=== PATIENT | male | born 1965 | race Hispanic/Latino ===

== ENCOUNTER 2024-05-03 06:16 | Emergency (ER) | payer OTHER ==
[~2024-05-03] VITALS: Ht 167.6 cm; Wt 84.8 kg
--- NOTE | 2024-05-03 06:47 | ERN ---
ED Note History of Present Illness Stated Complaint: C/O RECTAL BLEEDING WITH PAIN X 3 DAYS Chief Complaint: Rectal Bleed Time Seen by MD: 06:23 Dictation: This is a 58-year-old male who presented to the emergency room with complaints of rectal bleeding and pain for the past 3 days. He stated that he has had bleeding per rectum before but it was never painful as much and he did not pay much attention to to it. The pain was so intense that he has not slept all night and he is also unable to sit so he has been standing during my exam. Patient denies any systemic complaints such as fevers, nausea, vomiting, abdominal pain, diarrhea, constipation or urinary symptoms. Temperature 98.3 pulse 85 respirations 18 blood pressure 128/88 with a pulse oximetry of 98% on room air Home Meds Active Scripts Lidocaine HCl (Lidocaine HCl 5% Oint 36Gm) 5 % Oint, 1 APPL TP TID for pain, #1 APPL Prov:GIOVANA ALVARADO DO 05/03/24 Hydrocortisone (Hydrocortisone 2.5% Oint) 2.5 % Oint, 1 APPL TP BID for 10 Days, #60 GM 0 Refills apply to affected area(s) Prov:GIOVANA ALVARADO DO 05/03/24 Past Medical History Past Medical History: No Pertinent History Surgical History: None Family History: Negative RN Note Reviewed/Agreed w/PFSH: Yes Review of System Dictation Constitutional: Negative for fever,chills, and weight loss Eyes: Negative for injury, pain,redness, and discharge ENT: Negative for injury,pain or swelling Cardiovascular: Negative for chest pain, palpitations, and edema Respiratory: Negative for shortness of breath, cough, and wheezing, Abdomen/GI: Negative for abdominal pain, nausea, vomiting, diarrhea, and constipation positive for rectal bleeding Back: Negative for injury and pain : Negative for injury, bleeding and discharge MS/Extremity: Negative for injury and deformity Skin: Negative for rash, and discoloration Neuro: Negative for headache, weakness, numbness, tingling, and seizure Psych: Negative for suicide ideation, homicidal ideation, and hallucinations Initial Vital Sign VS Vital Signs Date Time Temp Pulse Resp B/P (MAP) Pulse Ox O2 Delivery O2 Flow Rate FiO2 05/03/24 06:17 98.2 Room Air 05/03/24 06:38 85 18 128/88 99 0 21 Physical Exam Dictation General: awake, alert, NAD Head/Face: Normocephalic, atraumatic Eyes: PERRL, EOMI, vision at baseline ENT: oral cavity clear, TMs clear, no signs of infection Neck: Trachea midline, supple, no nuchal rigidity Cardiovascular: RRR, normal S1/S2, No MRGs, no JVD Respiratory: CTAB, no respiratory distress, No rales or wheezes Abdomen: Soft, non-tender, non-distended, normal bowel sounds, no guarding or rebound. Skin: Warm, dry, normal turgor, no rash MS/Extremity: Pulses equal, no cyanosis, neurovascular intact, FROM Neuro: COAx4, GCS 15, strength 5/5, CN 2-12 intact, normal cerebellar exam, normal gait, Psych: Normal behavior, mood, and affect normal Extremities-trace edema without any palpable cords, Homans sign is negative Results (Laboratory/Radiology) Laboratory/Radiology Laboratory Tests Test 05/03/24 06:30 White Blood Count 5.0 K/uL (4.8-10.8) Red Blood Count 3.65 MIL/uL (4.50-6.20) L Hemoglobin 10.9 g/dL (14.0-18.0) L Hematocrit 34.2 % (42-54) L Mean Corpuscular Volume 93.7 fL (79-99) Mean Corpuscular Hemoglobin 29.9 pg (27.0-33.0) Mean Corpuscular Hemoglobin Concent 31.9 g/dL (32.0-36.0) L Red Cell Distribution Width 18.5 % (11.0-15.5) H Platelet Count 37 K/uL (130-400) L Mean Platelet Volume fL (7.5-10.5) Immature Granulocyte % (Auto) 0.4 % (0-1) Neutrophils (%) (Auto) 80.5 % (40.0-77.0) H Lymphocytes (%) (Auto) 11.1 % (21.0-51.0) L Monocytes (%) (Auto) 5.6 % (3.0-13.0) Eosinophils (%) (Auto) 1.8 % (0.0-8.0) Basophils (%) (Auto) 0.6 % (0.0-5.0) Neutrophils # (Auto) 4.1 K/uL (1.8-7.7) Lymphocytes # (Auto) 0.6 K/uL (1.0-4.8) L Monocytes # (Auto) 0.3 K/uL (0.1-1.0) Eosinophils # (Auto) 0.09 K/uL (0.00-0.70) Basophils # (Auto) 0.03 K/uL (0.00-0.20) Absolute Immature Granulocyte (auto 0.02 K/uL (0-1) Nucleated Red Blood Cells 0.0 % (0.0-0.19) Sodium Level 135 mmol/L (136-145) L Potassium Level 3.8 mmol/L (3.5-5.1) Chloride Level 104 mmol/L (101-111) Carbon Dioxide Level 24 mmol/L (21-32) Blood Urea Nitrogen 7 mg/dL (7-18) Creatinine 0.7 mg/dL (0.5-1.3) Glomerular Filtration Rate Calc 108 mL/min (>90) Random Glucose 124 mg/dL (70-105) H Total Calcium 7.8 mg/dL (8.5-10.1) L Labs Reviewed?: Yes ED Course ED Course Orders Procedure Category Date Status Time Cbc With Differential LAB 05/03/24 In Process 06:22 Occult Blood Stool LAB 05/03/24 Logged Single Only 06:22 Morphine 4mg Syg PHA 05/03/24 Complete (Morphine 4mg Syg) 06:30 Ondansetron 4mg Inj PHA 05/03/24 Complete (Zofran 4mg Inj) 06:30 Basic Metabolic Panel LAB 05/03/24 Complete 06:22 Ketorolac PHA 05/03/24 Complete Tromethamine 15mg/Ml 07:30 Current Medications Medications (Trade) Dose Ordered Sig/Jez Route PRN Reason Start Time Stop Time Status Last Admin Dose Admin Ketorolac Tromethamine (toRADol) 15 mg ONCE ONCE IV 05/03/24 07:30 05/03/24 07:31 DC 05/03/24 07:41 Morphine Sulfate (morPHINE 4MG SYG) 4 mg ONCE ONCE IVP 05/03/24 06:30 05/03/24 06:31 DC 05/03/24 06:58 Ondansetron HCl (zoFRAN 4MG INJ) 4 mg ONCE ONCE IVP 05/03/24 06:30 05/03/24 06:31 DC 05/03/24 06:58 Vital Signs Date Time Temp Pulse Resp B/P (MAP) Pulse Ox O2 Delivery O2 Flow Rate FiO2 05/03/24 07:23 98.2 89 18 143/73 98 Room Air* 0 21 05/03/24 06:38 98.4 85 18 128/88 99 Room Air* 0 21 05/03/24 06:17 98.2 Room Air We will perform diagnostic labs, and administer medications according to the patient's complaint. Once the results are available, will review and personally interpreted the labs to rule out any acute life-threatening emergency the trach require immediate intervention and treatment. I will then re-evaluate the patient after treatment and diagnostic exams have return to determine whether the patient requires any further testing, can safely be discharged home or need further admission to hospital for additional treatment and evaluation. Medical Decision Making MDM CC: Rectal pain with bright red blood per rectum three days Historian: Patient Comorbidities: History of hemorrhoids Differential diagnosis-hemorrhoids, proctitis, diverticulitis, upper GI bleed with a short transit time, physical friction. Limitations by social determinants: None vital signs are stable Clinical exam: Has a exquisite tenderness near the rectum, there is no obvious hemorrhoid, but consistent with a small hemorrhoid likely. No signs of abscess. No signs of fistula. His abdomen is soft and nontender and nondistended and he has no other symptoms such as nausea or vomiting fevers or diarrhea. Low suspicion for any sort of infectious process such as diverticulitis, proctitis or other. Labs ( independently ordered and interpreted by me ): No acute abnormalities no anemia Treatment in ER: Patient received IV morphine for pain control as well as IV Toradol. Plan: We will DC with hemorrhoid cream and oral pain control. Recommends frequent Sitz baths, recommend diet modification. Recommend PCP follow up. Problem List Problem List: (1) Rectal bleeding (2) Proctitis DX & DISP Disposition: Discharge Departure Impression: Primary Impression: Rectal bleeding Additional Impression: Hemorrhoid Condition: Stable Scripts Lidocaine HCl (Lidocaine HCl 5% Oint 36Gm) 5 % Oint 1 APPL TP TID for pain, #1 APPL Prov: GIOVANA ALVARADO DO 05/03/24 Hydrocortisone (Hydrocortisone 2.5% Oint) 2.5 % Oint 1 APPL TP BID for 10 Days, #60 GM 0 Refills apply to affected area(s) Prov: GIOVANA ALVARADO DO 05/03/24 Additional Instructions: You appear to have hemorrhoids, which are swollen veins in the rectal area that can cause pain and bleeding. Your blood work (CBC, BMP) shows anemia and thrombocytopenia (low hemoglobin and low platelets). Please follow up with the primary doctor regarding these lab values. I have prescribed hydrocortisone cream and lidocaine ointment. You can apply each of these as prescribed. You can try [id number] options such as which has a wipes to use after bowel movements, and preparation H. Increase your fiber intake. Eat more fruits, vegetables, and whole grains dose often stools. You can consider a fiber supplement such as Metamucil daily. Stay hydrated. Drink at least eight glasses of water per day to prevent dehydration. Consider stool softener such as Colace. Try to avoid straining while stooling. Avoid sitting on the toilet for long periods. Take warm Sitz baths. Soak the affected area in warm water for 10-15 minutes 2-3 times daily to relieve discomfort. You can take [id number] pain medicine such as Tylenol or ibuprofen. I recommend he follow up with the primary provider in 1-2 weeks for re- evaluation. As we discussed, your symptoms are likely related to hemorrhoids, but there are other conditions that will need follow up as an outpatient. Referrals: NONE (PCP) ANGEL ESCOBEDO MD May 03, 2024 06:47 GIOVANA ALVARADO DO May 03, 2024 07:21
[2024-05-03] MEDS: morPHINE 4 MG SYG IVP ONE (06:58)
[2024-05-03] MEDS: ondanSETRON 4MG INJ IVP ONE (06:58)
[2024-05-03 07:23] VITALS: BP 143/73; PULSE 89; RESP 18; TEMP 98.2; O2SAT 98
[2024-05-03 07:31] LABS: BASOPHILS # (AUTO) 0.03 K/uL (0.00-0.20); BASOPHILS % (AUTO) 0.6 % (0.0-5.0); EOSINOPHILS # (AUTO) 0.09 K/uL (0.00-0.70); EOSINOPHILS % (AUTO) 1.8 % (0.0-8.0); HEMATOCRIT 34.2 % (42-54); IMMATURE GRANULOCYTE ABSOLUTE 0.02 K/uL (0-1); LYMPHOCYTES # (AUTO) 0.6 K/uL (1.0-4.8); LYMPHOCYTES % (AUTO) 11.1 % (21.0-51.0); MEAN CORPUSCULAR HEMOGLOBIN 29.9 pg (27.0-33.0); MEAN CORPUSCULAR HGB CONC 31.9 g/dL (32.0-36.0); MEAN CORPUSCULAR VOLUME 93.7 fL (79-99); MONOCYTES # (AUTO) 0.3 K/uL (0.1-1.0); MONOCYTES % (AUTO) 5.6 % (3.0-13.0); NEUTROPHILS # (AUTO) 4.1 K/uL (1.8-7.7); NEUTROPHILS % (AUTO) 80.5 % (40.0-77.0); PLATELET COUNT (AUTO) 37 K/uL (130-400); RED BLOOD CELL COUNT(AUTO) 3.65 MIL/uL (4.50-6.20); RED CELL DISTRIBUTION WIDTH 18.5 % (11.0-15.5)
[2024-05-03 07:35] LABS: CREATININE 0.7 mg/dL (0.5-1.3); POTASSIUM 3.8 mmol/L (3.5-5.1)
[2024-05-03] MEDS: ketOROlac 15MG/ML VIAL (15MG/ML) IV ONE (07:41)
[2024-05-03] MEDS ORDERED: LID5O TP (07:45)
[2024-05-03] MEDS ORDERED: HC2530O TP (07:45)
[2024-05-03 08:12] LABS: PLATELET MORPHOLOGY COMMENT MARKED DECREASE
== END 2024-05-03 08:01 | disposition home or self-care (01) ==
LOC: EDH 06:16
DX: K62.5 Hemorrhage of anus and rectum (principal); K64.9 Unspecified hemorrhoids
CPT/HCPCS: 99284; 96374; 96375; 80048; 85025; 36415; J1885; J2405; J2270